=== PATIENT | female | born 1970 | race Caucasian/White ===

== ENCOUNTER 2017-11-30 18:26 | Emergency (ER) | payer MEDICAID ==
[~2017-11-30] VITALS: Ht 167.6 cm; Wt 96.2 kg
[2017-11-30 19:07] LABS: Basophils # (auto) 0 uL; Eosinophils # (auto) 0 uL; Hemoglobin 12.8 g/dL (12.2-16.2); Mean Corpuscular Hgb Conc. 32.3 g/dL (32.0-36.0); Monocytes # (auto) 0.3 uL; Neutrophils # (auto) 4.2 uL; White Blood Cell 6.4 10^3/uL (4.4-10.8)
[2017-11-30 19:08] LABS: Basophils % (auto) 0.6 % (0.0-2.0); Eosinophils % (auto) 0.4 % (0.0-7.0); Hematocrit 39.6 % (36.0-46.0); Lymphocytes # (auto) 1.8 uL; Lymphocytes % (auto) 28.3 % (10.0-50.0); Mean Corpuscular Hemoglobin 24.5 pg (28.0-32.0); Mean Corpuscular Volume 75.9 fL (80.0-100.0); Monocytes % (auto) 5.1 % (0.0-12.0); Neutrophils % (auto) 65.6 % (37.0-80.0); Nucleated Red Blood Cells % 0.1 %; Platelet Count (auto) 239 10^3/uL (140-450); Red Blood Cells 5.22 10^6/uL (4.0-5.20); Red Cell Distribution Width 14.1 % (11.8-14.3)
[2017-11-30 19:30] LABS: Alanine Aminotransferase 24 U/L (13-56); Albumin 3.9 g/dL (3.4-5.0); Alkaline Phosphatase 59 U/L (45-117); Anion Gap 7 (5-15); Aspartate Aminotransferase 10 U/L (15-37); BUN/Creatinine Ratio 21.4; Bilirubin, Total 0.6 mg/dL (0.2-1.0); Blood Urea Nitrogen 15 mg/dL (7-18); Calcium 8.6 mg/dL (8.5-10.1); Carbon Dioxide 23 mmol/L (21-32); Chloride 108 mmol/L (98-107); GFR African American 115 mL/min; GFR Non-African American 95 mL/min; Glucose 97 mg/dL (74-106); Magnesium 2.6 mg/dL (1.6-2.6); Potassium 3.7 mmol/L (3.5-5.1); Sodium 138 mmol/L (136-145); Total Protein 7.8 g/dL (6.4-8.2)
[2017-11-30 21:13] LABS: Urine Bacteria NONE SEEN /hpf (None Seen); Urine Blood Negative /uL (Negative); Urine Mucus FEW (None Seen); Urine Specific Gravity 1.019 (1.001-1.035); Urine WBC 1 /hpf (0 - 5)
[2017-11-30] MEDS ORDERED: MECLIZINE HCL 25 MG TAB PO ONE (22:30)
[2017-11-30 22:49] LABS: Alcohol, Urine < 3.0 mg/dL (0-5); Amphetamine Screen, Urine NEGATIVE (NEGATIVE); Barbiturate Scree,Urine NEGATIVE (NEGATIVE); Benzodiazephine Screen, Urine POSITIVE (NEGATIVE); Cannabinoid Screen, Urine NEGATIVE (NEGATIVE); Cocaine Screen, Urine NEGATIVE (NEGATIVE); Opiate Scree,Urine POSITIVE (NEGATIVE); Phencyclidine Screen, Urine NEGATIVE (NEGATIVE)
[2017-11-30 23:30] VITALS: BP 158/95
== END 2017-12-01 02:06 | disposition home or self-care (01) ==
LOC: ER 18:31
DX: K59.00 Constipation, unspecified (principal); M62.838 Other muscle spasm; Z88.1 Allergy status to other antibiotic agents; Z90.710 Acquired absence of both cervix and uterus
CPT/HCPCS: 36415; 72125; 74018; 80053; 80307; 81001; 83735; 84484; 85025; 93005; 99285; J8597

== ENCOUNTER 2018-08-25 21:58 | Emergency (ER) | payer MEDICAID ==
[~2018-08-25] VITALS: Ht 167.6 cm; Wt 101.2 kg
[2018-08-25 22:21] VITALS: BP 132/89
[2018-08-25 23:17] LABS: Basophils # (auto) 0.1 uL; Basophils % (auto) 1.3 % (0.0-2.0); Eosinophils # (auto) 0.1 uL; Eosinophils % (auto) 1.7 % (0.0-7.0); Mean Corpuscular Hgb Conc. 32.4 g/dL (32.0-36.0); Mean Corpuscular Volume 77.2 fL (80.0-100.0); Monocytes # (auto) 0.5 uL; Monocytes % (auto) 6.8 % (0.0-12.0); Neutrophils # (auto) 4.3 uL; Neutrophils % (auto) 53.2 % (37.0-80.0); Nucleated Red Blood Cells % 0.2 %; Platelet Count (auto) 244 10^3/uL (140-450); Red Blood Cells 5.18 10^6/uL (4.0-5.20); Red Cell Distribution Width 14.5 % (11.8-14.3)
[2018-08-25 23:34] LABS: Calcium 9.2 mg/dL (8.5-10.1); Chloride 104 mmol/L (98-107); Potassium 3.7 mmol/L (3.5-5.1); Sodium 136 mmol/L (136-145)
[2018-08-25 23:35] LABS: INR 0.92 (0.9-1.15); Partial Thromboplastin Time 23.9 sec (23.64-32.05)
[2018-08-25 23:38] LABS: Alanine Aminotransferase 21 U/L (13-56); Anion Gap 8 (5-15); Aspartate Aminotransferase 11 U/L (15-37); BUN/Creatinine Ratio 32.4; Blood Urea Nitrogen 22 mg/dL (7-18); Carbon Dioxide 24 mmol/L (21-32); GFR African American 118 mL/min; GFR Non-African American 98 mL/min; Glucose 97 mg/dL (74-106); Magnesium 1.9 mg/dL (1.6-2.6)
[2018-08-25 23:43] LABS: Alkaline Phosphatase 62 U/L (45-117); Bilirubin, Total 0.3 mg/dL (0.2-1.0); Total Protein 7.7 g/dL (6.4-8.2)
== END 2018-08-26 01:09 | disposition left against medical advice (07) ==
LOC: ER 21:58
DX: R07.89 Other chest pain (principal); Z53.21 Procedure and treatment not carried out due to patient leaving prior to being seen by health care provider
CPT/HCPCS: 36415; 71046; 80053; 83735; 83880; 84484; 85025; 85610; 85730

== ENCOUNTER 2020-05-08 14:04 | Emergency (ER) | payer MEDICAID ==
[~2020-05-08] VITALS: Ht 167.6 cm; Wt 93.0 kg
[2020-05-08 15:43] LABS: Basophils # (auto) 0 10 ^3/uL (0-0.2); Eosinophils # (auto) 0 10 ^3/uL (0-0.8); Lymphocytes # (auto) 3.7 10 ^3/uL (0.4-5.4); Monocytes # (auto) 0.8 10 ^3/uL (0-1.3); Monocytes % (auto) 7.2 % (0.0-12.0); Nucleated Red Blood Cells % 0.1 %
[2020-05-08 15:44] LABS: Basophils % (auto) 0.3 % (0.0-2.0); Eosinophils % (auto) 0.3 % (0.0-7.0); Hematocrit 40.1 % (36.0-46.0); Hemoglobin 13.2 g/dL (12.2-16.2); Lymphocytes % (auto) 32.5 % (10.0-50.0); Mean Corpuscular Hemoglobin 24.8 pg (28.0-32.0); Mean Corpuscular Hgb Conc. 32.8 g/dL (32.0-36.0); Mean Corpuscular Volume 75.5 fL (80.0-100.0); Neutrophils # (auto) 6.9 10 ^3/uL (1.6-8.6); Neutrophils % (auto) 59.7 % (37.0-80.0); Platelet Count (auto) 261 10^3/uL (140-450); Red Blood Cells 5.31 10^6/uL (4.0-5.20); Red Cell Distribution Width 14.9 % (11.8-14.3); White Blood Cell 11.5 10^3/uL (4.4-10.8)
[2020-05-08 16:01] LABS: Albumin 3.7 g/dL (3.4-5.0); Calcium 9.1 mg/dL (8.5-10.1); Potassium 4.4 mmol/L (3.5-5.1)
[2020-05-08 16:04] LABS: BUN/Creatinine Ratio 23.6
[2020-05-08 16:06] LABS: Bilirubin, Total 0.2 mg/dL (0.2-1.0); Total Protein 7.3 g/dL (6.4-8.2)
[2020-05-08 16:50] VITALS: BP 145/92
[2020-05-08 17:28] LABS: Urine Bacteria FEW /hpf (None Seen); Urine Blood Negative /uL (Negative); Urine Specific Gravity 1.011 (1.001-1.035); Urine WBC <1 /hpf (0 - 5)
== END 2020-05-08 17:01 | disposition home or self-care (01) ==
LOC: ER 14:04
DX: R10.32 Left lower quadrant pain (principal); I11.0 Hypertensive heart disease with heart failure; Z90.710 Acquired absence of both cervix and uterus; Z87.440 Personal history of urinary (tract) infections
CPT/HCPCS: 36415; 74176; 80053; 81001; 83690; 85025

== ENCOUNTER 2023-01-03 15:56 | Emergency (ER) | payer MEDICAID ==
[~2023-01-03] VITALS: Ht 167.6 cm; Wt 86.4 kg
[2023-01-03] MEDS ORDERED: ASPirin 81 mg TAB PO ONE (16:15)
[2023-01-03 16:31] LABS: Urine Bacteria NONE SEEN /hpf (None Seen); Urine Blood Negative /uL (Negative); Urine Clarity Clear (Clear); Urine Color Colorless (Yellow); Urine Protein, UAD Negative (Negative); Urine Specific Gravity 1.005 (1.001-1.035); Urine Urobilinogen Normal (Negative); Urine WBC 1 /hpf (0 - 5)
[2023-01-03 16:55] LABS: Basophils # (auto) 0.1 10 ^3/uL (0-0.2); Eosinophils # (auto) 0.1 10 ^3/uL (0-0.8); Hemoglobin 13.9 g/dL (12.2-16.2); Mean Corpuscular Volume 75.7 fL (80.0-100.0); Neutrophils # (auto) 4.8 10 ^3/uL (1.6-8.6)
[2023-01-03 16:57] LABS: Hematocrit 42.5 % (36.0-46.0); Lymphocytes % (auto) 42.5 % (10.0-50.0); Mean Corpuscular Hemoglobin 24.7 pg (28.0-32.0); Mean Corpuscular Hgb Conc. 32.7 g/dL (32.0-36.0); Monocytes # (auto) 0.4 10 ^3/uL (0-1.3); Monocytes % (auto) 4.7 % (0.0-12.0); Neutrophils % (auto) 50.8 % (37.0-80.0); Nucleated Red Blood Cells % 0.1 %; Red Blood Cells 5.61 10^6/uL (4.0-5.20); Red Cell Distribution Width 15.1 % (11.8-14.3); White Blood Cell 9.5 10^3/uL (4.4-10.8)
[2023-01-03 17:06] VITALS: BP 131/95; RESP 17; TEMP 98; O2SAT 97
[2023-01-03 17:12] VITALS: PULSE 102
[2023-01-03 17:24] LABS: Alanine Aminotransferase 20 U/L (7-40); Alkaline Phosphatase 79 U/L (46-116); Anion Gap 7 (5-15); Aspartate Aminotransferase 15 U/L (13-40); BUN/Creatinine Ratio 23.6 (10.0-20.0); Blood Urea Nitrogen 17 mg/dL (9-23); Carbon Dioxide 26 mmol/L (20-30); Chloride 104 mmol/L (98-107); Glucose 97 mg/dL (74-106); Potassium 4.1 mmol/L (3.5-5.1); Sodium 137 mmol/L (136-145)
[2023-01-03 17:25] LABS: Bilirubin, Total 0.2 mg/dL (0.2-1.0); Total Protein 7.8 g/dL (5.7-8.2)
== END 2023-01-03 18:16 | disposition home or self-care (01) ==
LOC: ER 15:56
DX: R07.89 Other chest pain (principal); I12.9 Hypertensive chronic kidney disease with stage 1 through stage 4 chronic kidney disease, or unspecified chronic kidney disease; N18.9 Chronic kidney disease, unspecified; E78.5 Hyperlipidemia, unspecified; F15.90 Other stimulant use, unspecified, uncomplicated; Z98.890 Other specified postprocedural states; Z88.8 Allergy status to other drugs, medicaments and biological substances
CPT/HCPCS: 36415; 71046; 80053; 81001; 83735; 83880; 84484; 85025; 93005

== ENCOUNTER 2024-10-13 15:37 | Inpatient (IN) | payer MEDICARE, MEDICAID ==
[~2024-10-13] VITALS: Ht 165.1 cm; Wt 91.0 kg
[2024-10-13 16:41] LABS: Hematocrit 43.1 % (36.0-46.0); Hemoglobin 13.9 g/dL (12.2-16.2); Mean Corpuscular Hemoglobin 23.9 pg (28.0-32.0); Mean Corpuscular Volume 74.2 fL (80.0-100.0); Nucleated Red Blood Cells % 0.1 %
[2024-10-13 16:44] LABS: Chloride 105 mmol/L (98-107); Sodium 140 mmol/L (136-145)
[2024-10-13 16:45] LABS: Anion Gap 8 (5-15); Carbon Dioxide 27 mmol/L (20-31)
[2024-10-13 16:46] LABS: Calcium 9.4 mg/dL (8.7-10.4); Potassium 3.4 mmol/L (3.5-5.1)
[2024-10-13 16:50] LABS: BUN/Creatinine Ratio 20.9 (10.0-20.0); Blood Urea Nitrogen 9 mg/dL (9-23); Glucose 101 mg/dL (74-106)
[2024-10-13 16:51] LABS: Lipase 25 U/L (12-53)
--- NOTE | 2024-10-13 16:54 | ED.PDOC ---
History of Present Illness HPI Comments Patient is a 54 y/o female with a past medical h/o spinal surgery with paraplegia , HTN was brought to the ED via EMS after the patient had multiple loose stools. patient lives at home with her sister, is bed bound and reports that since yesterday she has been having diarrhoea associated with diffuse abd pain and nobody had cleaned her up. She called the EMS for having generalised body pain and diarrhoea. 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 Hx Family History Family History: Reviewed,noncontributory to illness, Family hx of heart elicia Social History Smoker: Non-Smoker Alcohol: Denies ETOH Use Drugs: Marijuana Lives In: Home Constitutional: reports: fatigue, weakness EENTM: denies: blurred vision, double vision, ear bleeding, ear discharge, ear drainage, ear pain, ear ringing, eye pain, eye redness, hearing loss, mouth pain, mouth swelling, nasal discharge, nose bleeding, nose congestion, nose pain, photophobia, tearing, throat pain, throat swelling, voice changes, others Respiratory: denies: cough, hemoptysis, orthopnea, SOB at rest, shortness of breath, SOB with excertion, stridor, wheezing, others Cardiovascular: denies: chest pain, dizzy spells, diaphoresis, Dyspnea on exertion, edema, irregular heart beat, left arm pain, lightheadedness, palpitations, PND, syncope, others Gastrointestinal: reports: abdominal pain, diarrhea, nausea Genitourinary: reports: incontinence Neurological: denies: dizziness, fainting, headache, left sided numbness, left sided weakness, numbness, paresthesia, pre-existing deficit, right sided numbness, right sided weakness, seizure, speech problems, tingling, tremors, weakness, others Musculoskeletal: denies: back pain, gout, joint pain, joint swelling, muscle pain, muscle stiffness, neck pain, others Integumetry: denies: bruises, change in color, change in hair/nails, dryness, laceration, lesions, lumps, rash, wounds, others Hematologic/Lymphatic: denies: anemia, blood clots, easy bleeding, easy bruising, swollen glands, others Endocrine: denies: excessive hunger, excessive sweating, excessive thirst, excessive urination, flushing, intolerance to cold, intolerance to heat, unexplained weight gain, unexplained weight loss, others Psychiatric: denies: anxiety, bipolar disorder, depression, hopeless, panic disorder, schizophrenia, sleepless, suicidal, others Physical Exam General Appearance: Mild Distress HEENT: Normal ENT Inspection, Pharynx Normal, TMs Normal Neck: Full Range of Motion, Non-Tender, Normal, Normal Inspection Respiratory: Chest Non-Tender, Lungs Clear, No Accessory Muscle Use, No Respiratory Distress, Normal Breath Sounds Cardiovascular: No Edema, No JVD, No Murmur, No Gallop, Normal Peripheral Pulses, Regular Rate/Rhythm Breast Exam: Deferred Gastrointestinal: Epigastric, No Pulsatile Mass, Normal Bowel Sounds, Tenderness Genitalia: Deferred Pelvic: Deferred Rectal: Deferred Extremities: No calf tenderness, Normal capillary refill, Normal inspection, Normal range of motion, Non-tender, No pedal edema Neurologic: Alert, 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 Was a procedure done?: No Differential Dx Considerations may include: acute gastroenteritis, colitis, diverticulitis, paraplegia( chronic ) X-Ray, Labs, Meds, VS Vital Signs Date Time Temp Pulse Resp B/P (MAP) Pulse Ox O2 Delivery O2 Flow Rate FiO2 10/13/24 18:00 86 14 115/83 (94) 93 10/13/24 17:25 81 20 95 Room Air* 0 21 10/13/24 17:24 81 20 127/84 (98) 95 10/13/24 15:42 98.9 99 18 131/78 (95) 99 98.9 Lab Test 10/13/24 17:20 10/13/24 16:26 Range/Units Urine Color Yellow Yellow Urine Clarity Clear Clear Urine pH 6.0 5.0-9.0 Urine Specific [place] 1.016 1.001-1.035 Urine Protein Negative Negative Urine Ketones Negative Negative Urine Blood Negative Negative /uL Urine Nitrite Negative Negative Urine Bilirubin Negative Negative Urine Urobilinogen Normal Negative mg/dL Urine Leukocyte Esterase Negative Negative /uL Urine RBC 2 0 - 4 /hpf Urine Microscopic WBC 1 0-5 /HPF Urine Squamous Epithelial Cells None seen <5 /hpf Urine Bacteria None seen None Seen /hpf Urine Mucus Few None Seen Urine Glucose Normal Normal mg/dL White Blood Count 4.1 L 4.4-10.8 10^3/uL Red Blood Count 5.81 H 4.0-5.20 10^6/uL Hemoglobin 13.9 12.2-16.2 g/dL Hematocrit 43.1 36.0-46.0 % Mean Corpuscular Volume 74.2 L 80.0-100.0 fL Mean Corpuscular Hemoglobin 23.9 L 28.0-32.0 pg Mean Corpuscular Hemoglobin Concent 32.3 32.0-36.0 g/dL Red Cell Distribution Width 15.7 H 11.8-14.3 % Platelet Count 235 140-450 10^3/uL Mean Platelet Volume 7.9 6.9-10.8 fL Neutrophils (%) (Auto) 44.8 37.0-80.0 % Lymphocytes (%) (Auto) 44.9 10.0-50.0 % Monocytes (%) (Auto) 8.5 0.0-12.0 % Eosinophils (%) (Auto) 1.2 0.0-7.0 % Basophils (%) (Auto) 0.6 0.0-2.0 % Neutrophils # (Auto) 1.8 1.6-8.6 10 ^3/uL Lymphocytes # (Auto) 1.8 0.4-5.4 10 ^3/uL Monocytes # (Auto) 0.3 0-1.3 10 ^3/uL Eosinophils # (Auto) 0 0-0.8 10 ^3/uL Basophils # (Auto) 0 0-0.2 10 ^3/uL Nucleated Red Blood Cells 0.1 % Sodium Level 140 136-145 mmol/L Potassium Level 3.4 L 3.5-5.1 mmol/L Chloride Level 105 98-107 mmol/L Carbon Dioxide Level 27 20-31 mmol/L Anion Gap 8 5-15 Blood Urea Nitrogen 9 9-23 mg/dL Creatinine 0.43 L 0.550-1.02 mg/dL Glomerular Filtration Rate Calc 115 >90 mL/min BUN/Creatinine Ratio 20.9 H 10.0-20.0 Serum Glucose 101 74-106 mg/dL Calcium Level 9.4 8.7-10.4 mg/dL Lipase 25 12-53 U/L Patient 54 y/o female was brought to the ED via EMS because of abd pain and diarrhoea she was having for 1 day. she is paraplegic for almost an year and lives with her sister and reported that nobody was cleaning her up and she continued to have diarrhoea along with abd pain. CT abd pelvis without contrast showed Concentric wall thickening of the distal colon , suggestive of infectious/inflammatory colitis.. CBC and BMP ere grossly normal, with mild hypokalemia. Patient was reported by the nurse to have suicidal ideation and documentation by the nurse was acknowledged but on rexamination by myself patient adamantly denied any suicidal ideation and reports that it might be a misunderstanding by the nurse. At this point patient does not need a tele psych evaluation but if during this admission she again has any such complaint, telepsych may be consulted. Patient will need further inpatient management and possible placement to a SNF later at the time of discharge after assessing home safety. Time of 1ST Reevaluation: 17:26 Reevaluation 1ST: Improved Patient Education/Counseling: Diagnosis, Treatment Family Education/Counseling: No Family Present SEPSIS Sepsis Screen Date sepsis recognized/suspect: Oct 13, 2024 Time Sepsis recognized/suspect: 1541 Recent Procedure: No On Antibiotic Therapy: No Respiratory Rate >20: No Heart Rate >90: Yes Temp<36 C (96.8 F) or >38.3 C: No SBP <90 or MAP <65 mmHG: No New Acute Mental Status Change: No Is the patient on CPAP, BIPAP,: No Physician Orders Ct Ab Pel Wo Con-No Oral Or Iv (10/13/24 16:03) Heplock Iv (10/13/24 16:03) Vital Signs Date Time Temp Pulse Resp B/P (MAP) Pulse Ox O2 Delivery O2 Flow Rate FiO2 10/13/24 18:00 86 14 115/83 (94) 93 10/13/24 17:25 81 20 95 Room Air* 0 21 10/13/24 17:24 81 20 127/84 (98) 95 10/13/24 15:42 98.9 99 18 131/78 (95) 99 98.9 Laboratory Tests Test 10/13/24 16:26 White Blood Count 4.1 10^3/uL (4.4-10.8) L Departure 1 Departure Time of Disposition: 19:28 Impression: Primary Impression: Abdominal pain Additional Impressions: Colitis Hypokalemia Disposition: ADMITTED INPATIENT Condition: Stable Critical Care Note Critical Care Time?: No Stability Stability form required: No Heart Score Heart Score: Heart Score Response (Comments) Value History N/A 0 EKG N/A 0 Age N/A 0 Risk Factors N/A 0 Troponin N/A 0 Total 0 ELMA JOSEPH RESIDENT Oct 13, 2024 16:54
[2024-10-13 17:25] VITALS: PULSE 81; RESP 20; O2SAT 95
--- NOTE | 2024-10-13 17:41 | DVH ---
Exam: CT CT AB PEL WO CON-NO ORAL OR IV History: abd pain, diarrhoea Comparison Study: CT ABD PELVIS WO CONTRAST on DOS: 05/08/20 Technique: Multidetector spiral CT of the abdomen was performed from lung bases to pubic symphysis. Imaging was performed without IV contrast. Axial, coronal and sagittal multiplanar reformats were ob tained from the axial data set by the technologist. Radiation Dose : 1. Abdomen/Pelvis: CTDIvol 1170.67 mGy, DLP 3.73 mGy*cm. Findings: Evaluation of solid organs is limited due to lack of intravenous contrast use. Lung Bases: No acute or significant lung base finding. Normal heart size. No pleural or pericardial effusion. Liver: The liver is normal in size. No focal lesions. Gallbladder and Biliary Tree: Gallbladder is surgically absent. Spleen: Unremarkable Pancreas: The pancreas is grossly normal in appearance. Adrenal Glands: Unremarkable Kidneys: Kidneys are grossly normal without calculi or hydronephrosis. Bladder: Collapsed around a Guajardo catheter Bowel: The stomach is grossly normal in appearance. No bowel obstruction. Concentric wall thickening of the distal colon , suggestive of infectious / inflammatory colitis. The appendix is not visuali zed; however, no secondary findings of acute appendicitis identified. Ascites: Absent Lymphadenopathy: No mesenteric, retroperitoneal or periportal lymphadenopathy. Abdominal Wall and Mesentery: Unremarkable. Vasculature: The visualized abdominal aorta is normal in size and caliber. Evaluation of abdominal a nd pelvic vessels is limited due to lack of intravenous contrast. Pelvic Organs: Unremarkable Musculoskeletal: No aggressive focal bony lesions, acute fractures or dislocation. Surgical fixation hardware seen throughout the thoracic and lumbar spine IMPRESSION: 1. Concentric wall thickening of the distal colon , suggestive of infectious/inflammatory colitis. Radiation optimization: All CT scans at this facility use at least one of these dose optimization naheed hniques: automated exposure control mA and/or kV adjustment per patient size (includes targeted exam s where dose is matched to clinical indication) or iterative reconstruction.
[2024-10-13 18:13] LABS: Urine Protein, UAD Negative (Negative)
[2024-10-13 19:27] VITALS: PULSE 95; RESP 19; O2SAT 96
[2024-10-13] MEDS ORDERED: LOPERAMIDE HCL 2 MG CAP/TAB PO PRN (20:00)
[2024-10-13] MEDS: SODIUM CHLORIDE 0.9% 500 ML IV ONE (20:31)
[2024-10-13] MEDS: cefTRIAXone 1GM/50ML D5W 50 ML IV ONE (20:31)
[2024-10-13] MEDS: POTASSIUM EFFERVESENT TAB 25 MEQ PO ONE (20:31)
[2024-10-13] MEDS: ONDANSETRON HCL 4 MG/2 ML VIAL IV PRN (21:12)
[2024-10-13] MEDS: MORPHINE SULFATE INJ 2 MG/ml SYRG IV PRN (21:12)
[2024-10-13] MEDS: CARVEDILOL 3.125 MG TAB PO SCH (22:34)
[2024-10-13 23:10] VITALS: BP 122/77; PULSE 76; RESP 18; TEMP 97.9; O2SAT 95
[2024-10-13 23:45] VITALS: PULSE 76; RESP 18; O2SAT 95
[2024-10-13] MEDS: HYDROcodone-ACET 5/325MG TAB PO PRN (23:59)
[2024-10-14] VITALS (8 sets, daily range): BP systolic 102–143; BP diastolic 47–99; PULSE 69–94; RESP 15–20; TEMP 97.6–98.8; O2SAT 92–99
--- NOTE | 2024-10-14 00:13 | DVHHP2 ---
History of Present Illness Reason for Visit: Abdominal pain History of Present Illness 54-year-old female presents for evaluation of abdominal pain. Patient reports mid abdominal pain with associated nausea and diarrhea. No fever or chills. Patient has a history of spinal surgery with paraplegia. No cardiac or respiratory complaints. Past Medical History Hypertension, dyslipidemia and chronic kidney disease Past Surgical History , hysterectomy, tonsillectomy, cholecystectomy Family History Noncontributory Smoke: No ALCOHOL: none Drugs: None Review of Systems Review of Systems Review of systems are currently negative otherwise addressed in HPI. Allergies: Coded Allergies: Cephalexin (Verified Allergy, Unknown, 02/09/16) Medications Current Medications Medications Dose Ordered Sig/Trinh Route Start Time Stop Time Status Last Admin Dose Admin Duloxetine HCl 30 mg DAILY PO 10/14/24 10:00 Divalproex Sodium 500 mg BID PO 10/13/24 22:00 Carvedilol 6.25 mg Q12HR PO 10/13/24 22:00 Triamterene/HCTZ 1 cap DAILY PO 10/14/24 10:00 Furosemide 20 mg BIDD PO 10/14/24 06:00 Ceftriaxone Sodium 50 ml @ 100 mls/hr DAILY@09 IV 10/14/24 09:00 Metronidazole 100 ml @ 100 mls/hr Q8HR IV 10/13/24 22:00 Loperamide HCl 2 mg PRN PRN PO 10/13/24 20:00 Acetaminophen/ Hydrocodone Bitart 1 tab Q4HP PRN PO 10/13/24 20:00 10/13/24 23:59 1 TAB Ondansetron HCl 4 mg Q4HP PRN IV 10/13/24 20:00 10/13/24 21:12 4 MG Acetaminophen 650 mg Q6HP PRN PO 10/13/24 20:00 Morphine Sulfate 2 mg Q6HPRN PRN IV 10/13/24 20:00 10/13/24 21:12 2 MG Exam Vital Signs Vital Signs Date Time Temp Pulse Resp B/P (MAP) Pulse Ox O2 Delivery O2 Flow Rate FiO2 10/13/24 22:34 83 121/77 10/13/24 22:00 97.4 16 96 97.4 10/13/24 19:27 Room Air* 0 21 Exam Gen: 54-year-old female in mild distress Skin: Warm, dry, normal color and texture, no rash. HEENT: Normocephalic atraumatic, mucous membranes moist and pink. Neck: Cervical and supraclavicular nodes normal without enlargement, trachea is midline, thyroid gland is normal without masses. Pulmonary: Clear to auscultation and percussion bilaterally. Cardiac: Regular rate and rhythm. No murmur Abdomen: Soft, mid abdominal tenderness, nondistended, bowel sounds present all 4 quadrants, no guarding, no rigidity, no organomegaly. Extremities: No cyanosis, clubbing, no edema Neuro: Cranial nerves II through XII grossly intact, paraplegic Labs/Xrays ORDERING PHYSICIAN: ELMA JOSEPH RESIDENT PROCEDURE(s): ABPL - CT AB PEL WO CON-NO ORAL OR IV REASON: abd pain, diarrhoea ORDER NUMBER(s): [id number], ACCESSION NUMBER(s): [id number] Exam: CT CT AB PEL WO CON-NO ORAL OR IV History: abd pain, diarrhoea Comparison Study: CT ABD PELVIS WO CONTRAST on DOS: 05/08/20 Technique: Multidetector spiral CT of the abdomen was performed from lung bases to pubic symphysis. Imaging was performed without IV contrast. Axial, coronal and sagittal multiplanar reformats were obtained from the axial data set by the technologist. Radiation Dose : 1. Abdomen/Pelvis: CTDIvol 1170.67 mGy, DLP 3.73 mGy*cm. Findings: Evaluation of solid organs is limited due to lack of intravenous contrast use. Lung Bases: No acute or significant lung base finding. Normal heart size. No pleural or pericardial effusion. Liver: The liver is normal in size. No focal lesions. Gallbladder and Biliary Tree: Gallbladder is surgically absent. Spleen: Unremarkable Pancreas: The pancreas is grossly normal in appearance. Adrenal Glands: Unremarkable Kidneys: Kidneys are grossly normal without calculi or hydronephrosis. Bladder: Collapsed around a Guajardo catheter Bowel: The stomach is grossly normal in appearance. No bowel obstruction. Concentric wall thickening of the distal colon , suggestive of infectious / inflammatory colitis. The appendix is not visualized; however, no secondary findings of acute appendicitis identified. Ascites: Absent Lymphadenopathy: No mesenteric, retroperitoneal or periportal lymphadenopathy. Abdominal Wall and Mesentery: Unremarkable. Vasculature: The visualized abdominal aorta is normal in size and caliber. Evaluation of abdominal and pelvic vessels is limited due to lack of intravenous contrast. Pelvic Organs: Unremarkable Musculoskeletal: No aggressive focal bony lesions, acute fractures or dislocation. Surgical fixation hardware seen throughout the thoracic and lumbar spine IMPRESSION: 1. Concentric wall thickening of the distal colon , suggestive of infectious/inflammatory colitis. Radiation optimization: All CT scans at this facility use at least one of these dose optimization techniques: automated exposure control mA and/or kV adjustment per patient size (includes targeted exams where dose is matched to clinical indication) or iterative reconstruction. Labs Test 10/13/24 17:20 10/13/24 16:26 Range/Units Urine Color Yellow Yellow Urine Clarity Clear Clear Urine pH 6.0 5.0-9.0 Urine Specific [place] 1.016 1.001-1.035 Urine Protein Negative Negative Urine Ketones Negative Negative Urine Blood Negative Negative /uL Urine Nitrite Negative Negative Urine Bilirubin Negative Negative Urine Urobilinogen Normal Negative mg/dL Urine Leukocyte Esterase Negative Negative /uL Urine RBC 2 0 - 4 /hpf Urine Microscopic WBC 1 0-5 /HPF Urine Squamous Epithelial Cells None seen <5 /hpf Urine Bacteria None seen None Seen /hpf Urine Mucus Few None Seen Urine Glucose Normal Normal mg/dL White Blood Count 4.1 L 4.4-10.8 10^3/uL Red Blood Count 5.81 H 4.0-5.20 10^6/uL Hemoglobin 13.9 12.2-16.2 g/dL Hematocrit 43.1 36.0-46.0 % Mean Corpuscular Volume 74.2 L 80.0-100.0 fL Mean Corpuscular Hemoglobin 23.9 L 28.0-32.0 pg Mean Corpuscular Hemoglobin Concent 32.3 32.0-36.0 g/dL Red Cell Distribution Width 15.7 H 11.8-14.3 % Platelet Count 235 140-450 10^3/uL Mean Platelet Volume 7.9 6.9-10.8 fL Neutrophils (%) (Auto) 44.8 37.0-80.0 % Lymphocytes (%) (Auto) 44.9 10.0-50.0 % Monocytes (%) (Auto) 8.5 0.0-12.0 % Eosinophils (%) (Auto) 1.2 0.0-7.0 % Basophils (%) (Auto) 0.6 0.0-2.0 % Neutrophils # (Auto) 1.8 1.6-8.6 10 ^3/uL Lymphocytes # (Auto) 1.8 0.4-5.4 10 ^3/uL Monocytes # (Auto) 0.3 0-1.3 10 ^3/uL Eosinophils # (Auto) 0 0-0.8 10 ^3/uL Basophils # (Auto) 0 0-0.2 10 ^3/uL Nucleated Red Blood Cells 0.1 % Sodium Level 140 136-145 mmol/L Potassium Level 3.4 L 3.5-5.1 mmol/L Chloride Level 105 98-107 mmol/L Carbon Dioxide Level 27 20-31 mmol/L Anion Gap 8 5-15 Blood Urea Nitrogen 9 9-23 mg/dL Creatinine 0.43 L 0.550-1.02 mg/dL Glomerular Filtration Rate Calc 115 >90 mL/min BUN/Creatinine Ratio 20.9 H 10.0-20.0 Serum Glucose 101 74-106 mg/dL Calcium Level 9.4 8.7-10.4 mg/dL Lipase 25 12-53 U/L SEPSIS Sepsis Screen Date sepsis recognized/suspect: Oct 13, 2024 Time Sepsis recognized/suspect: 1926 Recent Procedure: No On Antibiotic Therapy: No Respiratory Rate >20: No Heart Rate >90: Yes Temp<36 C (96.8 F) or >38.3 C: No SBP <90 or MAP <65 mmHG: No New Acute Mental Status Change: No Is the patient on CPAP, BIPAP,: No Physician Orders Stool Wbc (10/13/24 19:29) Stool Bacterial Culture (10/13/24 19:29) Clostridium Difficile Toxin (10/13/24 19:29) * Oenologist Consult (10/13/24 ) Duloxetine Hcl Capsule (Cymbalta Capsule (10/14/24 10:00) Divalproex Dr Tablet (Depakote "Dr" Tabl (10/13/24 22:00) Carvedilol Tablet (Coreg Tablet) (10/13/24 22:00) Triamterene/Hctz (Dyazide 37.5/25mg Caps (10/14/24 10:00) Furosemide Tablet (Lasix Tablet) (10/14/24 06:00) Ceftriaxone 1gm/50ml D5w (Rocephin) (10/14/24 09:00) Metronidazole 500mg/100ml (Flagyl 500mg/ (10/13/24 22:00) Loperamide Capsule (Imodium Capsule) (10/13/24 20:00) Basic Metabolic Panel (10/14/24 04:00) Admit (10/13/24 19:46) Hydrocodone-Acet 5/325mg Tab ([place] 5/32 (10/13/24 20:00) Ondansetron Hcl (Zofran) (10/13/24 20:00) Complete Blood Count (10/14/24 04:00) Condition: Stable (10/13/24 19:46) Acetaminophen Tablet (Tylenol Tablet) (10/13/24 20:00) Clear Liq Diet (10/14/24 Breakfast) Bedrest With Bathroom Privileg (10/13/24 19:46) Morphine Sulfate Injection (10/13/24 20:00) Vital Signs Date Time Temp Pulse Resp B/P (MAP) Pulse Ox O2 Delivery O2 Flow Rate FiO2 10/13/24 22:34 83 121/77 10/13/24 22:00 97.4 83 16 121/77 (92) 96 97.4 10/13/24 21:42 83 16 121/77 10/13/24 21:12 95 19 111/79 10/13/24 19:27 95 19 96 Room Air* 0 21 10/13/24 19:27 97.4 95 19 111/79 (90) 96 97.4 10/13/24 18:00 86 14 115/83 (94) 93 10/13/24 17:25 81 20 95 Room Air* 0 21 10/13/24 17:24 81 20 127/84 (98) 95 Laboratory Tests Test 10/13/24 16:26 White Blood Count 4.1 10^3/uL (4.4-10.8) L Medications Medications Dose Ordered Sig/Trinh Route Start Time Stop Time Status Last Admin Dose Admin Acetaminophen/ Hydrocodone Bitart 1 tab Q4HP PRN PO 10/13/24 20:00 10/13/24 23:59 1 TAB Ceftriaxone Sodium 50 ml @ 100 mls/hr ONCE ONCE IV 10/13/24 19:30 10/13/24 20:23 DC 10/13/24 20:31 100 MLS/HR Morphine Sulfate 2 mg Q6HPRN PRN IV 10/13/24 20:00 10/13/24 21:12 2 MG Ondansetron HCl 4 mg Q4HP PRN IV 10/13/24 20:00 10/13/24 21:12 4 MG Potassium Bicarbonate 25 meq ONCE ONCE PO 10/13/24 19:30 10/13/24 20:23 DC 10/13/24 20:31 25 MEQ Sodium Chloride 500 ml @ 500 mls/hr Q1H ONCE IV 10/13/24 19:30 10/13/24 20:29 DC 10/13/24 20:31 500 MLS/HR Assessment/Plan Assessment/Plan Assessment Acute abdominal pain Acute colitis Hypokalemia Paraplegic Plan [place] [facility] [place]Flagyl Replete electrolytes Resume home medications Continue treatment per orders. Plan discussed with: Patient My Orders Orders - LISETTE LIU AGACNP Procedure Category Date Status Time Duloxetine Hcl PHA 10/14/24 In Process Capsule (Cymbalta 10:[address] Tablet PHA 10/13/24 In Process (Depakote "Dr" Tabl 22:00 Carvedilol Tablet PHA 10/13/24 In Process (Coreg Tablet) 22:00 Triamterene/Hctz PHA 10/14/24 In Process (Dyazide 37.5/25mg 10:00 Furosemide Tablet PHA 10/14/24 In Process (Lasix Tablet) 06:00 Ceftriaxone 1gm/50ml PHA 10/14/24 In Process D5w (Rocephin) 09:00 Metronidazole PHA 10/13/24 In Process 500mg/100ml (Flagyl 22:00 Loperamide Capsule PHA 10/13/24 In Process (Imodium Capsule) 20:00 Basic Metabolic Panel LAB 10/14/24 Logged 04:00 Admit ADMIT 10/13/24 Transmitted 19:46 Hydrocodone-Acet PHA 10/13/24 In Process 5/325mg Tab ([place] 20:00 Ondansetron Hcl PHA 10/13/24 In Process (Zofran) 20:00 Complete Blood Count LAB 10/14/24 Logged 04:00 Condition: Stable PAL 10/13/24 In Process 19:46 Acetaminophen Tablet PHA 10/13/24 In Process (Tylenol Tablet) 20:00 Clear Liq Diet DIET 10/14/24 Transmitted Breakfast Bedrest With Bathroom PAL 10/13/24 In Process Privileg 19:46 Morphine Sulfate PHA 10/13/24 In Process Injection 20:00 Date of Service: Oct 13, 2024 Billing Provider: LISETTE LIU Common Visit Codes: [id number] INP/OBS CARE (MOD) LISETTE LIU Oct 14, 2024 00:13
[2024-10-14] MEDS: FUROSEMIDE 20 MG TAB PO SCH (05:31)
[2024-10-14] MEDS ORDERED: DIVA1TAB58 PO (07:59)
[2024-10-14] MEDS ORDERED: OXYC80TA PO (07:59)
[2024-10-14] MEDS ORDERED: DULO1CAP5 PO (07:59)
[2024-10-14] MEDS ORDERED: BETH10TA2 PO (07:59)
[2024-10-14] MEDS ORDERED: HYDR-3682 PO (07:59)
[2024-10-14] MEDS ORDERED: CARV6.2551 PO (07:59)
[2024-10-14] MEDS ORDERED: OLAN2.5T38 PO (07:59)
[2024-10-14 08:16] LABS: Chloride 106 mmol/L (98-107); Potassium 3.6 mmol/L (3.5-5.1); Sodium 136 mmol/L (136-145)
[2024-10-14 08:17] LABS: Anion Gap 6 (5-15); Calcium 10.1 mg/dL (8.7-10.4); Carbon Dioxide 24 mmol/L (20-31); Hematocrit 41.6 % (36.0-46.0); Hemoglobin 13.3 g/dL (12.2-16.2); Mean Corpuscular Hemoglobin 23.9 pg (28.0-32.0); Mean Corpuscular Volume 75.0 fL (80.0-100.0)
[2024-10-14 08:22] LABS: BUN/Creatinine Ratio 23.1 (10.0-20.0); Glucose 87 mg/dL (74-106)
[2024-10-14 08:23] LABS: Blood Urea Nitrogen 9 mg/dL (9-23)
[2024-10-14 09:04] LABS: Total Cells Counted 100.0 (100)
[2024-10-14] MEDS ORDERED: OXYC-998 PO (09:32)
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
[2024-10-14] MEDS: TRIAMTERENE/HCTZ 37.5/25 MG CAP/TAB PO SCH (11:06)
[2024-10-14] MEDS: cefTRIAXone 1GM/50ML D5W 50 ML IV SCH (11:15)
[2024-10-14 13:02] LABS: Alanine Aminotransferase 30.0 U/L (7-40); Albumin 4.1 g/dL (3.2-4.8); Alkaline Phosphatase 68.0 U/L (46-116); Bilirubin, Direct 0.1 mg/dL (<0.3); Bilirubin, Total 0.3 mg/dL (0.2-1.0); Total Protein 6.8 g/dL (5.7-8.2)
--- NOTE | 2024-10-14 13:57 | DVH ---
EXAM: XY CHEST PORTABLE Indication: To rule out aspiration related lung injury Technique: Single frontal view of the chest was obtained Comparison: None FINDINGS: Lines and Tubes: None Lungs: No focal consolidation. Pleura: No effusion. No pneumothorax. Cardiomediastinal contours: Unremarkable Bones: No acute osseous abnormality. Postsurgical changes are visualized in the thoracic spine. IMPRESSION: No acute cardiopulmonary disease.
[2024-10-14] MEDS: D5W/SOD CHL 0.45% 1,000 ML IV SCH (17:50)
[2024-10-14] MEDS: NYSTATIN TOPICAL POWDER 15GM TOP SCH (21:43)
[2024-10-15 08:00] VITALS: RESP 15; O2SAT 98
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
[2024-10-15 17:37] LABS: Hematocrit 40.9 % (36.0-46.0); Hemoglobin 13.3 g/dL (12.2-16.2); Mean Corpuscular Hemoglobin 23.9 pg (28.0-32.0); Mean Corpuscular Volume 73.4 fL (80.0-100.0); Nucleated Red Blood Cells % 0.1 %
[2024-10-15 18:00] LABS: Alanine Aminotransferase 22 U/L (7-40); Alkaline Phosphatase 69 U/L (46-116); Calcium 10.0 mg/dL (8.7-10.4); Carbon Dioxide 29 mmol/L (20-31); Chloride 104 mmol/L (98-107)
[2024-10-15 18:01] LABS: Albumin 4.2 g/dL (3.2-4.8); Anion Gap 5 (5-15); BUN/Creatinine Ratio 16.7 (10.0-20.0); Bilirubin, Total 0.3 mg/dL (0.2-1.0); Blood Urea Nitrogen 6 mg/dL (9-23); Glucose 99 mg/dL (74-106); Potassium 3.9 mmol/L (3.5-5.1); Sodium 138 mmol/L (136-145); Total Protein 6.7 g/dL (5.7-8.2)
[2024-10-15 20:00] VITALS: RESP 15; O2SAT 98
[2024-10-15 21:00] VITALS: BP 139/85; PULSE 62; RESP 18; O2SAT 96
[2024-10-15] MEDS: ACETAMINOPHEN 325 MG TAB PO PRN (22:53)
[2024-10-16 08:00] VITALS: O2SAT 97
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
[2024-10-16 20:00] VITALS: RESP 17; O2SAT 97
[2024-10-16] MEDS: metroNIDAZOLE 500 MG TAB PO SCH (22:00)
[2024-10-17 08:00] VITALS: PULSE 70; RESP 18; O2SAT 96
[2024-10-17 08:36] VITALS: BP 152/91; PULSE 70; RESP 18; TEMP 98.2; O2SAT 96
[2024-10-17] MEDS: LOPERAMIDE HCL 2 MG CAP/TAB PO ONE (14:45)
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
[2024-10-17] MEDS: ONDANSETRON ODT 4 MG TAB PO PRN (15:47)
[2024-10-17 16:34] VITALS: BP 140/63; PULSE 83; RESP 18; TEMP 98.5; O2SAT 97
[2024-10-17 19:54] VITALS: BP 130/89; PULSE 104; RESP 17; TEMP 99.1; O2SAT 99
[2024-10-17 20:00] VITALS: PULSE 104; RESP 17; O2SAT 99
[2024-10-17] MEDS: CEFPODOXIME PROXETIL 200 MG TAB PO SCH (21:41)
[2024-10-18] VITALS (7 sets, daily range): BP systolic 109–142; BP diastolic 63–92; PULSE 74–97; RESP 16–18; TEMP 97.7–98.2; O2SAT 94–98
[2024-10-18] MEDS: MELATONIN 5 MG TAB PO ONE (03:11)
--- NOTE | 2024-10-18 07:29 | ECG ---
[facility] Test Date: 2024-10-17 Test Time: 21:23:12 Pat Name: ANGIE PARIKH Department: Room: 0236 A Gender: F Tube Pusher: García : 1970 Requested By: DIVYA THIBODEAUX Order Number: [id number] Reading MD: Efrain Davenport Measurements Intervals [place] Rate: 79 P: 0 MS: 0 QRS: 42 QRSD: 93 T: 34 QT: 516 QTc: 592 Interpretive Statements Atrial fibrillation Consider left ventricular hypertrophy Borderline T abnormalities, lateral leads Prolonged QT interval Electronically Signed On 10-18-2024 21:34:34 PDT by Efrain Davenport Please click the below link to view image of tracing.
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
[2024-10-18] MEDS ORDERED: OLAN1TAB7 PO (15:21)
[2024-10-18] MEDS: OLANZapine 5 MG TAB PO SCH (15:34)
[2024-10-19] VITALS (7 sets, daily range): BP systolic 105–138; BP diastolic 72–84; PULSE 71–91; RESP 16–18; TEMP 97.3–98.1; O2SAT 91–95
--- NOTE | 2024-10-19 07:15 | ECG ---
[facility] Test Date: 2024-10-19 Test Time: 00:54:19 Pat Name: ANGIE PARIKH Department: Respiratoy Room: 0236 A Gender: F Key Maker: : 1970 Requested By: ABIMAEL CORRAL Order Number: [id number] Reading MD: Efrain Davenport Measurements Intervals [place] Rate: 75 P: 60 MA: 157 QRS: 33 QRSD: 88 T: 207 QT: 527 QTc: 589 Interpretive Statements Sinus rhythm Probable anteroseptal infarct, old Nonspecific T abnormalities, lateral leads Prolonged QT interval Electronically Signed On 10-20-2024 15:25:05 PDT by Efrain Davenport Please click the below link to view image of tracing.
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
[2024-10-19] MEDS: LACTULOSE 20Gm/30ML SOLN PO SCH (16:26)
[2024-10-19] MEDS: clonazePAM 0.5 MG TAB PO PRN (16:31)
[2024-10-20 05:00] VITALS: BP 112/73; PULSE 78; RESP 18; TEMP 97.5; O2SAT 94
[2024-10-20 08:35] VITALS: BP 102/66; PULSE 91; RESP 19; TEMP 98.1; O2SAT 94
[2024-10-20 09:04] LABS: Hematocrit 45.3 % (36.0-46.0); Hemoglobin 14.9 g/dL (12.2-16.2); Mean Corpuscular Hemoglobin 24.2 pg (28.0-32.0); Mean Corpuscular Volume 73.8 fL (80.0-100.0); Nucleated Red Blood Cells % 0.1 %
[2024-10-20 09:18] LABS: Alanine Aminotransferase 18 U/L (7-40); Albumin 4.6 g/dL (3.2-4.8); Alkaline Phosphatase 75 U/L (46-116); Anion Gap 11 (5-15); BUN/Creatinine Ratio 21.3 (10.0-20.0); Blood Urea Nitrogen 10 mg/dL (9-23); Carbon Dioxide 27 mmol/L (20-31); Chloride 100 mmol/L (98-107); Sodium 138 mmol/L (136-145); Total Protein 7.4 g/dL (5.7-8.2)
[2024-10-20 09:19] LABS: Bilirubin, Total 0.4 mg/dL (0.2-1.0)
[2024-10-20 09:22] LABS: Calcium 10.4 mg/dL (8.7-10.4); Glucose 131 mg/dL (74-106); Potassium 3.5 mmol/L (3.5-5.1)
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
== END 2024-10-20 12:15 | DRG 392 ==
LOC: ER 15:37 → EDBD 15:37 → OVERFLOW 19:46 → WEST WING 22:57 → EAST 10-17 23:00
PROVIDERS: ADMIT Student in an Organized Health Care Education/Training Program; ATTEND Student in an Organized Health Care Education/Training Program
DX: A09 Infectious gastroenteritis and colitis, unspecified (principal); G82.20 Paraplegia, unspecified; E87.6 Hypokalemia; E78.5 Hyperlipidemia, unspecified; R32 Unspecified urinary incontinence; N18.9 Chronic kidney disease, unspecified; I12.9 Hypertensive chronic kidney disease with stage 1 through stage 4 chronic kidney disease, or unspecified chronic kidney disease; K59.00 Constipation, unspecified; Z90.710 Acquired absence of both cervix and uterus; Z98.891 History of uterine scar from previous surgery; Z90.49 Acquired absence of other specified parts of digestive tract; Z88.1 Allergy status to other antibiotic agents; Z74.01 Bed confinement status
CPT/HCPCS: 36415; 71045; 74176; 80048; 80053; 80076; 81001; 83690; 85007; 85025; 85027; 87045; 87427; 87493; 93005; 96365; 96375; G0378; J2405; J3490; Q0162